=== PATIENT | female | born 1985 | race Caucasian/White ===

== ENCOUNTER 2016-05-30 08:09 | Emergency (ER) | payer SELFPAY ==
[~2016-05-30] VITALS: Ht 162.6 cm; Wt 75.0 kg
[2016-05-30] MEDS ORDERED: ALBU8HFA IH (08:16)
[2016-05-30] MEDS ORDERED: DEXAMETHASONE SOD PHOS 4 MG/ML 5 ML VIAL IM ONE (09:45)
[2016-05-30] MEDS ORDERED: IBUPROFEN 600 MG TABLET PO ONE (09:45)
[2016-05-30 09:59] VITALS: BP 114/59
== END 2016-05-30 10:23 | disposition home or self-care (01) ==
LOC: EMS 08:10
DX: J40 Bronchitis, not specified as acute or chronic (principal); J02.9 Acute pharyngitis, unspecified
CPT/HCPCS: 71010; 96372; 99283; J1100